=== PATIENT | female | born 1990 | race Caucasian/White ===

== ENCOUNTER 2016-11-01 16:00 | Emergency (ER) | payer OTHER ==
[~2016-11-01] VITALS: Ht 170.2 cm; Wt 68.9 kg
[~2016-11-01 16:00] MED LIST: CLARITIN10 M3 PO; ENDOCET 5-3251 EACH PO; FLONASE16 G1 BOTH NARES; IBUPROFEN800 MG PO; Motrin PO; NOHOMEMEDS; PREDNISONE20 MG PO; PRENATAL TABLE1 EAC3 PO; Percocet 5/325,Endoc PO; TYLENOL EXTRA500 MG PO
[2016-11-01 16:53] LABS: HEMATOCRIT 39.4 % (36.0-46.0); MCH 30.9 PG (29.0-34.0); MCHC 33.5 G/DL (30.0-36.0); MCV 92.3 FL (83-99); MEAN PLAT.VOLUME 10.9 uM^3 (9.5-12.4); PLATELET COUNT 238 K/uL (156-360); RBC DIS.WIDTH-CV 13.2 % (11.8-14.6); RBC DIS.WIDTH-SD 43.8 % (39-53); RED BLOOD COUNT 4.27 M/uL (3.80-5.20); WHITE BLOOD COUNT 8.9 K/uL (4.1-10.2)
[2016-11-01 17:03] LABS: CHLORIDE 107 mEq/L (99-109); POTASSIUM 4.1 mEq/L (3.7-5.4); SODIUM 140 mEq/L (136-147)
[2016-11-01 17:05] LABS: GLUCOSE 97 mg/dL (70-99)
[2016-11-01 17:07] LABS: ANION GAP 10 MEQ/L (2-14); TOTAL BILIRUBIN 0.3 mg/dL (0.0-1.0)
[2016-11-01 17:09] LABS: ALKALINE PHOSPHATASE 54 IU/L (3-129); GFR ESTIMATE (CALCULATED) > 59 mL/min/
[2016-11-01 17:10] LABS: UREA NITROGEN (BUN) 11 mg/dL (9-23)
[2016-11-01 17:23] LABS: QUANTITATIVE HCG < 4.0 MIU/ML
[2016-11-01 17:54] LABS: ADD MIUA? YES; BILIRUBIN SMALL; BLOOD NEGATIVE; COLOR YELLOW ((YELLOW)); GLUCOSE (STRIP) NEGATIVE; KETONES TRACE; LEUKOCYTES SMALL; NITRITE NEGATIVE; PROTEIN (STRIP) 30; SPECIFIC GRAVITY 1.036 (1.000-1.030)
[2016-11-01] MEDS ORDERED: FLAGYL500 MG PO (19:03)
[2016-11-01] MEDS ORDERED: KEFLEX500 MG PO (19:03)
[2016-11-01 19:20] VITALS: BP 128/79
[2016-11-01 19:42] LABS: BACTERIA 3+; CALCIUM OXALATE CRYSTALS 2+; CASTS NONE SEEN /LPF; CRYSTALS PRESENT; EPITHELIAL CELLS 2+; MUCUS TRACE; RED BLOOD CELLS 0-5 /HPF (0-5); UCUL ADDED? YES
[2016-11-02 13:44] LABS: CHLAMYDIA TRACHOMATIS NEGATIVE; NEISSERIA GONORRHOEAE NEGATIVE
== END 2016-11-01 19:21 | disposition home or self-care (01) ==
LOC: RME 16:00 → EME 16:00 → RME 19:21
PROVIDERS: Nurse Practitioner Family
DX: N76.0 Acute vaginitis (principal); B96.89 Other specified bacterial agents as the cause of diseases classified elsewhere; N39.0 Urinary tract infection, site not specified; F17.200 Nicotine dependence, unspecified, uncomplicated; Z91.040 Latex allergy status
CPT/HCPCS: 80053; 81003; 84702; 85027; 87086; 87210; 87491; 87591; 99281; 99284

== ENCOUNTER 2018-02-07 15:59 | Emergency (ER) | payer OTHER ==
[~2018-02-07] VITALS: Ht 170.2 cm; Wt 65.2 kg
[~2018-02-07 15:59] MED LIST changes: +FLAGYL500 MG PO; +KEFLEX500 MG PO
[2018-02-07] MEDS ORDERED: MOTRIN800 MG PO (17:41)
[2018-02-07] MEDS ORDERED: AUGMENTIN875 MG PO (17:41)
[2018-02-07 18:12] VITALS: BP 122/82
== END 2018-02-07 18:13 | disposition home or self-care (01) ==
LOC: EME 15:59
DX: J32.9 Chronic sinusitis, unspecified (principal); K21.9 Gastro-esophageal reflux disease without esophagitis; F32.9 Major depressive disorder, single episode, unspecified; F17.200 Nicotine dependence, unspecified, uncomplicated; Z87.440 Personal history of urinary (tract) infections; Z91.040 Latex allergy status
CPT/HCPCS: 99281; 99284

== ENCOUNTER 2018-02-25 13:35 | Emergency (ER) | payer OTHER ==
[~2018-02-25] VITALS: Ht 170.2 cm; Wt 62.4 kg
[~2018-02-25 13:35] MED LIST changes: +AUGMENTIN875 MG PO; +MOTRIN800 MG PO
[2018-02-25 13:43] VITALS: BP 124/71
== END 2018-02-25 15:25 | disposition left against medical advice (07) ==
LOC: EME 13:35
DX: N93.9 Abnormal uterine and vaginal bleeding, unspecified (principal); F32.9 Major depressive disorder, single episode, unspecified; K21.9 Gastro-esophageal reflux disease without esophagitis; Z91.040 Latex allergy status; F17.200 Nicotine dependence, unspecified, uncomplicated; Z87.440 Personal history of urinary (tract) infections
CPT/HCPCS: 81003; 99281; 99284